=== PATIENT | female | born 1995 | race Caucasian/White ===

== ENCOUNTER → 2017-12-30 | Outpatient (CLI) | payer OTHER ==
[2017-12-30 12:02] LABS: HCT 37.5 % (34.0-46.0); HGB 12.6 gm/dL (11.4-16.0); MCH 31.6 pg (25.0-35.0); MCHC 33.7 g/dL (31.0-37.0); MCV 93.7 fL (80.0-100.0); Mean Platelet Volume 7.9; Platelet Count 194 k/uL (150-450); RDW 12.5 % (11.5-15.5); WBC 7.4 k/uL (3.8-10.6)
[2017-12-30 17:21] LABS: Hemoglobin A1C 4.5 % (4.0-6.0)
[2017-12-31 12:52] LABS: HIV AB P24 Non-Reactive (Non-Reactive); HIV P24 AG Non-Reactive (Non-Reactive)
== END | disposition home or self-care (01) ==
LOC: LABWHC1 11:10
PROVIDERS: ATTEND Obstetrics & Gynecology
DX: Z34.80 Encounter for supervision of other normal pregnancy, unspecified trimester (principal); Z3A.00 Weeks of gestation of pregnancy not specified
CPT/HCPCS: 36415; 82950; 83036; 85027; 86762; 86780; 86850; 86900; 86901; 87086; 87340; 87390

== ENCOUNTER 2018-06-17 18:00 | Observation (INO) | payer BC, OTHER ==
[2018-06-17 18:58] LABS: Amorphous Sediment,Urine Rare /hpf; Appearance,Urine Cloudy (Clear); Bacteria,Urine Occasional /hpf; Bilirubin,Urine Negative (Negative); Blood,Urine Negative (Negative); Color,Urine Light Yellow; Glucose,Urine (UA) Negative (Negative); Ketones,Urine Negative (Negative); Leukocyte Esterase,Urine Moderate (Negative); Mucus,Urine Rare /hpf; Nitrite,Urine Negative (Negative); Protein,Urine Negative (Negative); RBC,Urine 1 /hpf (0-5); Specific Gravity,Urine 1.005 (1.001-1.035); Squamous Epithelial Cell,Urine 11 /hpf (0-4); Urobilinogen,Urine <2.0 mg/dL (<2.0); WBC,Urine 7 /hpf (0-5)
[2018-06-17 19:01] LABS: Basophils % (A) 0 %; Eosinophils % (A) 0 %; HCT 32.9 % (34.0-46.0); HGB 11.2 gm/dL (11.4-16.0); Lymphocytes # (A) 1.4 k/uL (1.0-4.8); Lymphocytes % (A) 27 %; MCHC 33.9 g/dL (31.0-37.0); MCV 91.2 fL (80.0-100.0); Mean Platelet Volume 10.6; Monocytes # (A) 0.4 k/uL (0-1.0); Monocytes % (A) 7 %; Neutrophils # (A) 3.2 k/uL (1.3-7.7); Neutrophils % (A) 63 %; Platelet Count 113 k/uL (150-450); RBC 3.61 m/uL (3.80-5.40); RDW 12.9 % (11.5-15.5); WBC 5.1 k/uL (3.8-10.6)
[2018-06-17 19:20] LABS: Uric Acid 5.3 mg/dL (3.7-7.4)
[2018-06-17 19:21] LABS: INR 0.9 (<1.2); Prothrombin Time 9.4 sec (9.0-12.0)
[2018-06-17 20:17] VITALS: BMI 37.5
[2018-06-17] MEDS ORDERED: OXYTOCIN 10 UNIT/ML 1 ML VIAL IM PRN (21:38)
[2018-06-17] MEDS ORDERED: TERBUTALINE 1 MG/ML VIAL SQ PRN (21:38)
[2018-06-17] MEDS ORDERED: CARBOPROST TROMETHAMINE 250 MCG/ML 1 ML AMP IM PRN (21:38)
[2018-06-17] MEDS ORDERED: METHYLERGONOVINE 0.2 MG/ML 1 ML AMP IM PRN (21:38)
[2018-06-17] MEDS ORDERED: LIDOCAINE 0.5% (PF) 5 MG/ML (50 ML SDV) SQ PRN (21:38)
[2018-06-17] MEDS ORDERED: LACTATED RINGERS 1,000 ML IV SCH (21:45)
--- NOTE | 2018-06-18 00:36 | P.HPOB ---
History of Present Illness H&P Date: 06/18/18 Chief Complaint: Vaginal pressure, decreased movement This is a 23-year-old white female 2 para 101 EDC 07/16/2018 at 37 3/7 weeks' gestation. Patient presented for labor check, stating she had vaginal pressure. She also mentioned decreased movement. heart rate is consistent with reactive NST, however blood pressure was slightly high, 150s to 160s over 90s. Patient has a history of -induced hypertension. Past surgical history colposcopy 2016. Current medications vitamin daily, Prilosec 2.5 mg daily. ALLERGIES none known. Family history significant for hypertension, lung cancer. Obstetric history blood type is B+, rubella status immune. VDRL testing, hepatitis B surface antigen, HIV testing, gonorrhea Chlamydia cultures, group B strep cultures all negative. One-hour Glucola 118. Previous vaginal delivery 2016 7 lbs. 6 oz. male . On exam this is a pleasant female, 5 foot 6 inches 233 pounds, blood pressure currently 150s over 90s. The general physical exam is within normal limits. Chest is clear in all chappell. Extremities reveal +2 edema. Reflexes are normal. Cervix is 1 cm dilated, 50% effaced, -2 station vertex presentation. heart rate is in the 140s consistent with reactive NST. Review of Systems Constitutional: Reports as per HPI Past Medical History Past Medical History: No Reported History History of Any Multi-Drug Resistant Organisms: None Reported Past Surgical History: No Surgical Hx Reported Past Anesthesia/Blood Transfusion Reactions: No Reported Reaction Past Psychological History: No Psychological Hx Reported Smoking Status: Never smoker Past Alcohol Use History: None Reported Past Drug Use History: None Reported - Past Family History Father Family Medical History: No Reported History Medications and Allergies Home Medications Medication Instructions Recorded Confirmed Type Pnv,Calcium 72/Iron/Folic Acid 1 each PO DAILY 05/03/16 06/17/18 History [ Plus Tablet] Allergies Allergy/AdvReac Type Severity Reaction Status Date / Time No Known Allergies Allergy Verified 06/17/18 18:11 Exam Vital Signs Temp Pulse Resp BP Pulse Ox 06/17/18 22:00 16 151/90 06/17/18 21:00 18 155/99 06/17/18 20:09 166/93 06/17/18 19:40 153/92 06/17/18 19:36 97.6 F 71 16 171/88 06/17/18 18:30 98.2 F 73 18 145/98 98 Intake and Output 06/17/18 06/17/18 06/18/18 14:59 22:59 06:59 Intake Total 300 Balance 300 Intake: Oral 300 Other: Weight 105.687 kg see dictation please Results Result Diagrams: 06/17/18 18:54 Abnormal Lab Results - Last 24 Hours (Table) 06/17/18 06/17/18 Range/Units 18:40 18:54 RBC 3.61 L (3.80-5.40) m/uL Hgb 11.2 L (11.4-16.0) gm/dL Hct 32.9 L (34.0-46.0) % Plt Count 113 L (150-450) k/uL Urine Appearance Cloudy H (Clear) Ur Leukocyte Esterase Moderate H (Negative) Urine WBC 7 H (0-5) /hpf Ur Squamous Epith Cells 11 H (0-4) /hpf Amorphous Sediment Rare H (None) /hpf Urine Bacteria Occasional H (None) /hpf Urine Mucus Rare H (None) /hpf Assessment and Plan Assessment: 37 2/7 weeks, induced hypertension Plan: Admit 23* observation, serial BP every hour while awake. Procardia XL 60mg. Time with Patient: Less than 30
[2018-06-18 05:11] VITALS: TEMP 96.9
[2018-06-18 09:59] VITALS: BP 138/82; PULSE 86; RESP 16
[2018-06-18] MEDS ORDERED: ACETAMINOPHEN TAB 325 MG TAB PO PRN (10:16)
--- NOTE | 2018-06-18 10:34 | P.DS ---
Providers Date of admission: 06/17/18 19:36 Expected date of discharge: 06/18/18 Attending physician: Rosi Wilks Primary care physician: Stated None Hospital Course: This is a 23-year-old white female 2 para 1001 EDC 07/06/2018 at 37-2/7 weeks' gestation. Patient presented last night with a history of decreased movement and vaginal pressure. She was not found to be in active labor, reactive NST was noted. However, blood pressures were elevated on admission, as high as 160 to 170s over 90s. All preeclamptic labs were drawn, AST, ALTs, uric acid all negative. No proteinuria. Platelets slightly decreased in the 110 range. She has 2+ peripheral edema, normal reflexes. Please see admitting H&P for details. Patient was started on Procardia 60 mg XL. She was monitored through the night for blood pressure. Her blood pressures have now stabilized, they are in the 130s over 80s this morning. Patient is feeling well. She has a mild headache and for this Tylenol has been given. Fetus is been active. She denies vaginal bleeding or fluid leakage. Plan is for discharge home. She will continue Procardia XL 60 mg daily, I have described this to the Radha Grant. She will monitor for any headache not alleviated by Tylenol, any visual changes or any right upper quadrant pain. She will monitor activity. She has a blood pressure cuff at home and will take her blood pressures once or twice daily, documented them and bring her. She has an appointment with me tomorrow. Again, the signs and symptoms of preeclampsia have been reviewed in detail. Patient Condition at Discharge: Good Plan - Discharge Summary Discharge Rx Participant: No New Discharge Prescriptions: No Action Pnv,Calcium 72/Iron/Folic Acid [ Plus Tablet] 1 each PO DAILY Discharge Medication List Pnv,Calcium 72/Iron/Folic Acid [ Plus Tablet] 1 each PO DAILY 05/03/16 [ History] Follow up Appointment(s)/Referral(s): Rosi Wilks MD [STAFF PHYSICIAN] - 1-2 Days Discharge Disposition: HOME SELF-CARE
== END 2018-06-18 11:00 | disposition home or self-care (01) ==
LOC: FBPOP 18:00 → 4FBP 19:36
PROVIDERS: ADMIT Obstetrics & Gynecology; ATTEND Obstetrics & Gynecology
DX: O13.3 Gestational [pregnancy-induced] hypertension without significant proteinuria, third trimester (principal); Z3A.37 37 weeks gestation of pregnancy; O36.8130 Decreased fetal movements, third trimester, not applicable or unspecified; Z82.49 Family history of ischemic heart disease and other diseases of the circulatory system; Z80.1 Family history of malignant neoplasm of trachea, bronchus and lung; Z79.899 Other long term (current) drug therapy
CPT/HCPCS: 59025; 99215; 84450; 84460; 84550; 85025; 85610; 85730; 81001; G0378 ×2

== ENCOUNTER 2018-06-29 06:02 | Inpatient (IN) | payer BC, OTHER ==
[2018-06-29] MEDS ORDERED: CARBOPROST TROMETHAMINE 250 MCG/ML 1 ML AMP IM PRN (06:19)
[2018-06-29] MEDS ORDERED: METHYLERGONOVINE 0.2 MG/ML 1 ML AMP IM PRN (06:19)
[2018-06-29] MEDS ORDERED: OXYTOCIN 10 UNIT/ML 1 ML VIAL IM PRN (06:19)
[2018-06-29] MEDS ORDERED: TERBUTALINE 1 MG/ML VIAL SQ PRN (06:19)
[2018-06-29] MEDS ORDERED: LIDOCAINE 1% INJ 10MG/ML (20 ML MDV) SQ PRN (06:19)
[2018-06-29 06:28] VITALS: BMI 37.5
[2018-06-29 06:30] LABS: Basophils % (A) 0 %; Eosinophils # (A) 0.1 k/uL (0-0.7); Eosinophils % (A) 1 %; HCT 34.6 % (34.0-46.0); HGB 11.9 gm/dL (11.4-16.0); Lymphocytes # (A) 1.5 k/uL (1.0-4.8); Lymphocytes % (A) 31 %; MCH 31.2 pg (25.0-35.0); MCHC 34.5 g/dL (31.0-37.0); MCV 90.6 fL (80.0-100.0); Mean Platelet Volume 10.9; Monocytes # (A) 0.3 k/uL (0-1.0); Monocytes % (A) 7 %; Neutrophils % (A) 60 %; Platelet Count 125 k/uL (150-450); RBC 3.82 m/uL (3.80-5.40)
[2018-06-29] MEDS ORDERED: OXYTOCIN 20 UNITS/1000 ML NS 1,000 ML IV SCH (06:30)
[2018-06-29] MEDS: LACTATED RINGERS 1,000 ML IV SCH ×3 (06:30→12:20)
--- NOTE | 2018-06-29 07:26 | P.HPOB ---
History of Present Illness H&P Date: 06/29/18 This is 23-year-old white female 2 para 1001 EDC 07/06/2018 at 39 weeks gestation. Patient presents for induction this morning for -induced hypertension. Blood pressure was elevated in the office yesterday, reactive NST was noted. Patient denies visual changes, right upper quadrant pain, or headache. Fetus is been active throughout the . Past medical history is negative. 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 Current medications vitamins. ALLERGIES none known. Family history significant for lung cancer and hypertension. Social history patient is a former smoker one half pack per day, she is not , father of the baby is involved, she is employed with the [employer]. She denies alcohol or drug use. history is significant for blood type B positive, rubella status immune. VDRL testing, hepatitis B surface antigen, HIV testing, gonorrhea and chlamydia cultures, group B strep cultures all negative. One-hour Glucola 87, repeat 118. On exam this is a pleasant white female who is 5 foot 6 inches, 233 pounds, blood pressure 142/89, pulse 84. The general physical exam is within normal limits. The extremities reveal +1 edema. She has normal reflexes. The chest is clear in all chappell. The cervix is 3 cm dilated, 60% effaced, -2 station, vertex presentation. Artificial amniorrhexis reveals clear fluid. heart rate is consistent with reactive NST. Impression: 39 weeks intrauterine , mild -induced hypertension , here for induction of labor, all signs reassuring. Plan: Continue close maternal and surveillance. Epidural may be placed at the patient's request. Anticipate normal spontaneous vaginal delivery. Review of Systems Constitutional: Reports as per HPI Past Medical History Past Medical History: No Reported History History of Any Multi-Drug Resistant Organisms: None Reported Past Surgical History: No Surgical Hx Reported Past Anesthesia/Blood Transfusion Reactions: No Reported Reaction Past Psychological History: No Psychological Hx Reported Smoking Status: Former smoker Past Alcohol Use History: None Reported Past Drug Use History: None Reported - Past Family History Father Family Medical History: No Reported History Medications and Allergies Home Medications Medication Instructions Recorded Confirmed Type Pnv,Calcium 72/Iron/Folic Acid 1 each PO DAILY 05/03/16 06/29/18 History [ Plus Tablet] Allergies Allergy/AdvReac Type Severity Reaction Status Date / Time No Known Allergies Allergy Verified 06/29/18 06:17 Exam Vital Signs Temp Pulse Resp BP 06/29/18 06:25 96.8 F L 84 16 142/89 Intake and Output 06/28/18 06/29/18 06/29/18 22:59 06:59 14:59 Other: Weight 105.687 kg See dictation under HPI please Results Result Diagrams: 06/29/18 06:22 Abnormal Lab Results - Last 24 Hours (Table) 06/29/18 Range/Units 06:22 Plt Count 125 L (150-450) k/uL Assessment and Plan Assessment: 39 week intrauterine , mild -induced hypertension, here for induction of labor. Plan: Oxytocin per hospital protocol. Continue close maternal and surveillance. Analgesic options reviewed with the patient. Anticipate normal spontaneous vaginal delivery. Time with Patient: Less than 30
[2018-06-29] MEDS ORDERED: ROPIVACAINE 100 MG, fentaNYL (PF) 200 MCG in SODIUM CHLORIDE 0.9% 76 ML EPIDURAL ONE (11:51)
[2018-06-29] MEDS ORDERED: WITCH HAZEL 1 EACH MED..PAD TOPICAL PRN (16:04)
[2018-06-29] MEDS ORDERED: LANOLIN CREAM 5 GM TUBE TOPICAL PRN (16:04)
[2018-06-29] MEDS ORDERED: SIMETHICONE 80 MG CHEWABLE PO PRN (16:04)
[2018-06-29] MEDS ORDERED: ZOLPIDEM 5 MG TAB PO PRN (16:04)
[2018-06-29] MEDS ORDERED: ACETAMINOPHEN TAB 325 MG TAB PO PRN (16:04)
[2018-06-29] MEDS ORDERED: diphenhydrAMINE ELIXIR 25 MG/10 ML CUP PO PRN (16:04)
[2018-06-29] MEDS ORDERED: diphenhydrAMINE 50 MG CAP PO PRN (16:04)
[2018-06-29] MEDS ORDERED: diphenhydrAMINE 50 MG/ML 1 ML VIAL IVP PRN ×2 (16:04)
[2018-06-29] MEDS ORDERED: BENZOCAINE/MENTHOL SPRAY 1 GM/SPRAY AEROSOL TOPICAL PRN (16:04)
[2018-06-29] MEDS ORDERED: HYDROCORTISONE 2.5% RECTAL CREAM 30 GM TUBE RECTAL PRN (16:04)
[2018-06-29] MEDS ORDERED: diphenhydrAMINE 25 MG CAP PO PRN (16:04)
--- NOTE | 2018-06-29 16:04 | P.PROBDLV ---
Vaginal Delivery Note - . Vaginal Delivery Note: This is a 23-year-old white female 2 para 1001 EDC 07/06/2018 at 39 weeks gestation. Patient presented today for induction for -induced hypertension. She denies vaginal bleeding, she denies headache visual changes or right upper quadrant pain. Fetus is been active throughout the . She had reactive NST in the office yesterday. Please see my dictated history and physical for details. Artificial amniorrhexis revealed clear fluid. Oxytocin was started and titrated per hospital protocol. She progressed well through the first stage of labor, epidural was placed per her request. She became completely dilated at 1531 hours and began the second stage of labor at that time. Perineal body is prepped and draped in usual sterile fashion. With excellent maternal expulsive efforts the head delivered occiput anterior and restituted accordingly. There was no nuchal cord noted. The right or anterior shoulder is not easily delivered from underneath the pubic symphysis with gentle downward traction. For this reason, an exaggerated Ginette positioning was instituted along with suprapubic pressure. The shoulder then gently delivered from underneath the pubic symphysis at which time the oropharynx, nasopharynx and external nares are bulb suctioned on the perineal body. Patient is officially delivered of a liveborn male infant at 1546 hrs. Umbilical cord is doubly clamped and ligated, he is handed to waiting nurses for evaluation where scores of 9 and 9 at one and 5 minutes respectively are given. The placenta is delivered spontaneously, it is inspected and noted to be intact with trivascular cord at 1549 hrs. This time the uterus is massaged. Inspection of the cervix, vagina, perineum, periurethral, and perirectal areas reveals no lacerations and no defects. Fundus is firm and in the midline, symmetric and 18 week size upon completion of delivery. weighs 11/27/2004 grams, or 9 lbs. 4 oz. Total estimated blood loss 300 mL's. All sponge needle and enhancement counts are correct at the and of the procedure. Patient is requesting circumcision for her son.
[2018-06-29] MEDS: IBUPROFEN 600 MG TAB PO PRN (16:24)
[2018-06-29] MEDS ORDERED: hydrALAZINE HCL 20 MG/ML 1 ML VIAL IVP PRN (19:27)
[2018-06-29] MEDS: SENNOSIDES-DOCUSATE SODIUM 1 EACH TAB PO SCH (21:35)
[2018-06-30] MEDS: IBUPROFEN 600 MG TAB PO PRN ×3 (02:57→19:43)
[2018-06-30] MEDS: SENNOSIDES-DOCUSATE SODIUM 1 EACH TAB PO SCH ×2 (08:05→20:58)
--- NOTE | 2018-06-30 10:10 | P.PN ---
Subjective Progress Note Date: 06/30/18 Principal diagnosis: day #1 Doing well. No headaches visual changes or right upper quadrant pain. Objective - Vital Signs Vital signs: Vital Signs Temp 97.6 F 06/30/18 08:00 Pulse 78 06/30/18 08:00 Resp 16 06/30/18 08:00 BP 167/100 06/30/18 08:00 Pulse Ox 99 06/30/18 08:00 Intake & Output 06/29/18 06/30/18 06/30/18 18:59 06:59 18:59 Intake Total 500 Balance 500 Intake: Oral 500 Other: # Voids 1 1 - Constitutional General appearance: Present: average body habitus, cooperative - EENT Eyes: Present: PERRLA ENT: Present: hearing grossly normal - Neck Neck: Present: normal ROM - Respiratory Respiratory: bilateral: CTA - Cardiovascular Rhythm: regular - Gastrointestinal General gastrointestinal: Present: normal bowel sounds - Genitourinary Genitourinary Comment(s): Fundus firm, midline, symmetric, 18 week size. - Integumentary Integumentary: Present: normal - Neurologic Neurologic: Present: CNII-XII intact - Musculoskeletal Musculoskeletal Comment(s): Reflexes, 1+ bilaterally. 1+ edema. Musculoskeletal: Present: gait normal - Labs CBC & Chem 7: 06/29/18 06:22 Assessment and Plan Assessment: day #1, -induced hypertension. Plan: We will begin labetalol 200 mg orally, twice a day. Continue blood pressure monitoring. Possible discharge home tomorrow. Time with Patient: Less than 30
[2018-06-30] MEDS: LABETALOL 200 MG TAB PO SCH ×2 (11:46→21:37)
[2018-06-30] MEDS ORDERED: LABETALOL 200 MG TAB PO SCH (21:00)
[2018-07-01 04:45] VITALS: TEMP 97.7
[2018-07-01] MEDS: SENNOSIDES-DOCUSATE SODIUM 1 EACH TAB PO SCH (08:08)
[2018-07-01] MEDS: LABETALOL 200 MG TAB PO SCH (08:09)
[2018-07-01 08:11] VITALS: PULSE 80; RESP 16
[2018-07-01 09:29] VITALS: BP 142/96
--- NOTE | 2018-07-01 09:31 | P.DS ---
Providers Date of admission: 06/29/18 06:02 Expected date of discharge: 07/01/18 Attending physician: Rosi Wilks Primary care physician: Stated None Hospital Course: This is a 23-year-old white female 2 para 1001 EDC 07/16/2018 at 39 weeks gestation. Patient presented for induction for -induced hypertension. She was induced for her first for the very same indication. Blood pressure on admission 142/89, however it was 160/101 in the office the day prior. Patient has denied headache visual changes or right upper quadrant pain. [place] strep cultures negative, rubella status immune, blood type B positive. Please see my dictated history and physical for details. Oxytocin was started, epidural was placed, and she went on to deliver a liveborn male infant with scores of 9 and 9 at one and 5 minutes respectively. He weighed 9 lbs. 4 oz. or 11/27/2004 grams. There was a shoulder dystocia encountered, easily alleviated with Ginette maneuver and suprapubic pressure. Please see dictated delivery note for details. In the period, patient became hypertensive. Labetalol was started, 200 mg, twice a day. She denies any symptomatology, and feels well. Blood pressure this morning 142/96. Fundus is firm and in the midline, symmetric and 18 week size. Extremities reveal +2 edema, she has normal reflexes. Lochia rubra is minimal. Breasts are not engorged. Patient is judged to be in good condition for discharge home. I have given her prescription for labetalol 200 mg, to continue twice daily. She has a blood pressure cuff at home and will monitor her blood pressures, she will return to the office in 2 weeks with these blood pressures for further adjustment if needed. I have reminded her to call me with any fevers shakes or chills, foul smelling or copious lochia, with the passage of large blood clots, with any pain not alleviated by [id number] Advil or Aleve, with any headache visual changes or right upper quadrant pain, or indeed with any questions or concerns. 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 Circumcision has been performed. He is doing well. Patient Condition at Discharge: Good Plan - Discharge Summary Discharge Rx Participant: No New Discharge Prescriptions: No Action Pnv,Calcium 72/Iron/Folic Acid [ Plus Tablet] 1 each PO DAILY Discharge Medication List Pnv,Calcium 72/Iron/Folic Acid [ Plus Tablet] 1 each PO DAILY 05/03/16 [ History] Follow up Appointment(s)/Referral(s): Rosi Wilks MD [STAFF PHYSICIAN] - 2 Weeks Discharge Disposition: HOME SELF-CARE
== END 2018-07-01 10:25 | disposition home or self-care (01) | DRG 807 ==
LOC: 4FBP 06:02
PROVIDERS: ADMIT Obstetrics & Gynecology; ATTEND Obstetrics & Gynecology
PROC: 10E0XZZ Delivery of Products of Conception, External Approach (ICD-10-PCS; principal; 2018-06-29)
PROC: 00HU33Z Insertion of Infusion Device into Spinal Canal, Percutaneous Approach (ICD-10-PCS; 2018-06-29)
PROC: 3E0R3BZ Introduction of Anesthetic Agent into Spinal Canal, Percutaneous Approach (ICD-10-PCS; 2018-06-29)
PROC: 3E033VJ Introduction of Other Hormone into Peripheral Vein, Percutaneous Approach (ICD-10-PCS; 2018-06-29)
PROC: 10907ZC Drainage of Amniotic Fluid, Therapeutic from Products of Conception, Via Natural or Artificial Opening (ICD-10-PCS; 2018-06-29)
DX: O13.4 Gestational [pregnancy-induced] hypertension without significant proteinuria, complicating childbirth (principal); Z37.0 Single live birth; O99.62 Diseases of the digestive system complicating childbirth; K21.9 Gastro-esophageal reflux disease without esophagitis; Z3A.39 39 weeks gestation of pregnancy; Z87.891 Personal history of nicotine dependence; Z80.1 Family history of malignant neoplasm of trachea, bronchus and lung; Z82.49 Family history of ischemic heart disease and other diseases of the circulatory system
CPT/HCPCS: 85025; 86850; 86900; 86901

== ENCOUNTER → 2018-09-22 | Outpatient (CLI) | payer BC, OTHER ==
[2018-09-23 13:23] LABS: Basophils % (A) 0 %; Eosinophils # (A) 0.2 k/uL (0-0.7); Eosinophils % (A) 3 %; HCT 44.2 % (34.0-46.0); Lymphocytes % (A) 25 %; MCH 29.8 pg (25.0-35.0); MCHC 31.7 g/dL (31.0-37.0); MCV 94.1 fL (80.0-100.0); Mean Platelet Volume 8.6; Monocytes # (A) 0.5 k/uL (0-1.0); Monocytes % (A) 6 %; Neutrophils # (A) 5.2 k/uL (1.3-7.7); Neutrophils % (A) 65 %; Platelet Count 302 k/uL (150-450); RDW 14.1 % (11.5-15.5)
== END | disposition home or self-care (01) ==
LOC: EDSTATUS 10:29 → LABPAT 12:00
PROVIDERS: ATTEND Obstetrics & Gynecology
DX: Z31.84 Encounter for fertility preservation procedure (principal)
CPT/HCPCS: 85025

== ENCOUNTER → 2018-09-25 | Day surgery (SDC) | payer BC, OTHER ==
--- NOTE | 2018-09-24 08:38 | HP ---
HISTORY AND PHYSICAL H and P for surgery tomorrow on the . This is a 23-year-old white female 2, para 2-0-0-2, who is requesting permanent tubal sterilization. I have reviewed with her in detail the other options for contraception including vasectomy, and patient would like to proceed with tubal ligation with Filshie clips. The [employer]CO[employer] pamphlet has been given for her review and all risks and benefits have been thoroughly discussed. REVIEW OF SYSTEMS: Review of systems is otherwise negative. PAST MEDICAL HISTORY: Past medical history is significant for mild dysplasia of the cervix in 2016 and -induced hypertension. PAST SURGICAL HISTORY: Colposcopy of the cervix in 2016. CURRENT MEDICATIONS: 1. Omeprazole 20 mg 30 minutes prior to meals as needed. 2. Labetalol 200 mg twice daily. ALLERGIES: None known. FAMILY HISTORY: Family history is significant for hypertension and lung cancer. REPRODUCTIVE HISTORY: Reproductive history is significant for normal spontaneous vaginal deliveries x2, both unremarkable, both healthy male infants. SOCIAL HISTORY: Patient is single. She works for the [employer] She is not a smoker and denies alcohol or drug use. PHYSICAL EXAMINATION: On exam, this is a pleasant white female, who is 201 pounds, blood pressure 118/74, patient is afebrile. HEENT exam reveals no thyromegaly, good dentition, trachea midline. No obvious cervical lymphadenopathy. Chest is clear to auscultation in all chappell anteriorly and posteriorly. Cardiac exam reveals regular rate and rhythm with no murmur, click, or rub. Breasts are bilaterally symmetric to inspection, engorged with milk, no obvious for discernible lesions or masses. Abdomen is soft, nontender, active bowel sounds. No organosplenomegaly. Extremities revealed no edema, there are good peripheral pulses, good range of motion. Cervix is multiparous, uterus is small, anteverted, anteflexed, mobile, smooth, and nontender. Adnexa are negative bilaterally with no masses or lesions noted. IMPRESSION: Gynecologically healthy multiparous female, requesting permanent tubal sterilization. PLAN: We will proceed with laparoscopic tubal ligation utilizing Filshie clips. The risks, benefits, and alternatives of this procedure have been discussed in detail, the patient's questions answered. We have discussed the risks to include but not be exclusive of bleeding, infection, perforation or damage to the bowel, bladder, ureters, blood vessels or indeed any pelvic or abdominal organs. We have discussed the risks of anesthesia to include unlikely aspiration, nerve damage, or even . All questions answered. MMODL / IJN: [id number] /
[2018-09-24 09:47] VITALS: BMI 29.1
[~2018-09-25] MED LIST: BUPIVACAINE (PF) 0.25% 30 ML VIAL SQ ONE; DEXAMETHASONE SOD PHOSPHATE 10 MG/ML 1 ML VIAL IV ONE; GLYCOPYRROLATE 0.2 MG/ML 2 ML VIAL ONE; HYDROcodone/APAP 7.5-325MG 1 EACH TAB PO ONE; HYDROmorphone (PF) 1 MG/ML ONE; HYDROmorphone 0.5 MG/0.5 ML SYRINGE IVP PRN; KETOROLAC 30 MG/ML 1 ML VIAL IVP ONE; KETOROLAC 30 MG/ML 1 ML VIAL ONE; LIDOCAINE 1% 20 ML VIAL (10MG/ML) FOR IV START INTRADERMA PRN; LIDOCAINE 1% INJ 10MG/ML (20 ML MDV) ONE; MIDAZOLAM 2 MG/2 ML VIAL IVP ONE; MIDAZOLAM 2 MG/2 ML VIAL ONE; NEOSTIGMINE 1 MG/ML 10 ML VIAL ONE; PROPOFOL 10 MG/ML 20 ML VIAL IV ONE; Pre Op ABX Message 1 EACH MISC MISCELLANE ONE; ROCURONIUM BROMIDE 10 MG/ML 10 ML VIAL IV ONE; SCOPOLAMINE 1.5MG/72HR PATCH TRANSDERM ONE; SUCCINYLCHOLINE CHLORIDE 100 MG/5 ML SYR IV ONE; fentaNYL (PF) 50 MCG/ML 2 ML AMP ONE
[2018-09-25 07:55] VITALS: RESP 16
[2018-09-25] MEDS: LACTATED RINGERS 1,000 ML IV SCH ×2 (08:00→11:53)
[2018-09-25] MEDS: ONDANSETRON 4 MG/2 ML VIAL IVP ONE ×2 (08:42→11:52)
--- NOTE | 2018-09-25 09:34 | P.OP ---
Date of Procedure: 09/25/18 Preoperative Diagnosis: Undesired fertility Postoperative Diagnosis: Same Procedure(s) Performed: Laparoscopic tubal ligation with Filshie clips Anesthesia: BACILIO Surgeon: Rosi Wilks Estimated Blood Loss (ml): 10 IV fluids (ml): 500 Urine output (ml): 200 Pathology: none sent Condition: stable Disposition: PACU Operative Findings: Normal-appearing tubes and ovaries bilaterally. No evidence of endometriosis, adhesions, or uterine fibroids. Description of Procedure: Patient is brought to the operating suite where a general anesthetic is administered without difficulty. She's placed in the dorsal lithotomy position. The appropriate timeout is performed to assure proper patient and procedural identification. Antibiotics are not deemed necessary. Urine hCG is negative. The cervix, vagina, perineum, and abdomen are all prepped and draped in usual sterile fashion. Bladder is drained for approximately 200 mL of clear yellow urine. Examination under anesthesia reveals a small anteverted uterus, negative adnexa bilaterally. Speculum was placed into the vagina. Anterior lip of the lip of the cervix is grasped with an Allis clamp. The small acorn cannula is placed onto the cervix and attached to the Allis. Speculum is removed. Gloves are changed and now attention is drawn to the abdomen. A small infraumbilical incision is made with a scalpel.. Needle is placed and placement is checked with hanging drop technique. Abdomen is insufflated under low filling pressures to approximately 3.5 L of CO2 gas. Veress needle was removed. Trochars placed and placement is noted to be atraumatic. A second incision is made suprapubically and a second trocar is placed under direct visualization. The patient is now placed in Trendelenburg position. The uterus is brought up and the tubes are inspected bilaterally, noted to be within normal limits. Filshie clip is placed in the isthmic portion of the right tube with care to traverse the entire diameter of the tube into the mesal salpinx. Fimbriated and is identified for proper placement. Ovary appears normal. The same procedure is carried out on the contralateral tube, clip placed in the isthmic portion with care to traverse the entire diameter of the tube into the mesal salpinx. Again, ovary appears normal to inspection. Fimbriated and is also identified for proper placement. Inspection of the liver edge, gallbladder, appendix, bowel all within normal limits. No evidence of pelvic endometriosis or adhesions. Uterine serosal surfaces smooth, no evidence of fibroids. The abdomen is clean and dry. CO2 gas was allowed to diffuse. Trochars are removed under direct visualization and the fascial defects are clean and dry. The skin incisions are closed with 4 -0 Monocryl in a subcuticular manner. They are injected with a total of 10 mL of quarter percent Marcaine. Steri-Strips are applied to the wounds. Instrumentation is removed from the vagina. Cervix is clean and dry. All sponge needle and enhancement counts are correct. Patient is brought back to the recovery room in very good condition with stable vital signs including a blood pressure of 98/49, 99% O2 saturation, pulse 55. Patient will follow-up with me in the office in 2 weeks. Toradol is given prior to leaving the operative suite.
[2018-09-25 09:50] VITALS: TEMP 97.9
[2018-09-25 11:46] VITALS: BP 115/67; PULSE 75
== END | disposition home or self-care (01) ==
LOC: OR 07:34
PROVIDERS: ATTEND Obstetrics & Gynecology
DX: Z30.2 Encounter for sterilization (principal); K21.9 Gastro-esophageal reflux disease without esophagitis; F17.210 Nicotine dependence, cigarettes, uncomplicated; Z79.899 Other long term (current) drug therapy; Z82.49 Family history of ischemic heart disease and other diseases of the circulatory system
CPT/HCPCS: 81025; 84703; 58671; J2250; J1100; J2710; J2405; J2001; J3010; J1885; J1170 ×2; J0330; J2704